=== PATIENT | female | born 1990 | race Caucasian/White ===

== ENCOUNTER 2025-05-16 02:32 | Emergency (ER) | payer OTHER, SELFPAY ==
[2025-05-16] VITALS (22 sets, daily range): BP systolic 141–200; BP diastolic 95–121; PULSE 80–141; RESP 14–16; TEMP 36.6–37.1; O2SAT 97–100
--- NOTE | 2025-05-16 03:09 | PC.NURSE ---
Patient being monitored by this BUSINESS ASST. Items have been removed from the room and cabinets have been secured. Will continue to monitor.
--- NOTE | 2025-05-16 03:34 | PC.NURSE ---
Patient's significant other is in the room. Patietn talking to self and states i am scared repeatedly. Significant other is calming her down. Will continue to monitor.
--- NOTE | 2025-05-16 03:44 | PC.NURSE ---
Talked to pt's fiance. He reports pt has hx of schizoeffective disorder, schizophrenia, and multiple mood disorders. States Pt has been hospitalized multiple times for psychotic episodes. state pt has slept in apx 4 days. Reports she has not been taking her psychiatric medications. He reports pt has had audiotory and visual hallicinations. he also reports pt has been making statements of performing acts that could potential harm other individuals. He is requesting DCR evaluation.
--- NOTE | 2025-05-16 04:08 | ED.PSYCH ---
HPI - Psych <Cornelio Quinn MD - Last Filed: 05/24/25 20:54> General Chief Complaint: Psychiatric Symptoms Stated Complaint: mental health Time Seen by Provider: 05/16/25 02:54 Source: EMS and police Mode of arrival: EMS History of Present Illness HPI Narrative: 35-year-old female with longstanding psychiatric issues is brought in by the police for trying to damage her own property and acting violently. Patient is not a harm to herself but is a harm to others throwing various items such as flower pots and other heavy items towards the paramedics and police. According to her fiance, she has an acute psychotic breakdown roughly once every month or 2. He is not aware of her actual psychiatric diagnoses or her medications as she does not share it with him. He does say that she often prior to these acute psychotic breakdown, she has episodes of insomnia and often talks to people who are not there. She exhibits behaviors of schizophrenia and manic episodes. Initially, when patient came into the ER she was still agitated after being given 300 mg of ketamine by the paramedics. After some coaxing by her fiance and with the assistance of nursing staff, Haldol 5 mg and Benadryl 25 mg IV were given to her and she is now finally sleeping. According to her fiance, at 1 point she was on Abilify and gabapentin but has not been on medications for a long time. Related Data Allergies Allergy/AdvReac Type Severity Reaction Status Date / Time No Known Drug Allergies Allergy Verified 05/16/25 03:14 Review of Systems <Cornelio Quinn MD - Last Filed: 05/24/25 20:54> Review of Systems ROS Unobtainable: All systems reviewed & are unremarkable except as noted in HPI and below Exam <Cornelio Quinn MD - Last Filed: 05/24/25 20:54> Narrative Exam Narrative: General: Patient is randomly screaming and not wanting to be touched. Head: normocephalic, atraumatic, Initial Vital Signs Initial Vital Signs: Vital Signs Pulse Rate 95 H 05/16/25 02:43 Pulse Oximetry 99 05/16/25 02:43 <Albina Roche MD - Last Filed: 05/16/25 17:38> Initial Vital Signs Initial Vital Signs: Vital Signs Pulse Rate 95 H 05/16/25 02:43 Pulse Oximetry 99 05/16/25 02:43 Course <Cornelio Quinn MD - Last Filed: 05/24/25 20:54> Orders Ordered: Discontinued Medications Diphenhydramine HCl (Diphenhydramine 50 Mg/Ml Vial) 25 mg IV NOW ONE Stop: 05/16/25 03:18 Last Admin: 05/16/25 04:09 Dose: 25 mg Documented By: NELA Diphenhydramine HCl (Diphenhydramine 50 Mg/Ml Vial) 25 mg IM NOW ONE Stop: 05/16/25 12:44 Last Admin: 05/16/25 13:13 Dose: 25 mg Documented By: HERMAN Haloperidol (Haloperidol 5 Mg/Ml Vial) 5 mg IV NOW ONE Stop: 05/16/25 03:14 Last Admin: 05/16/25 04:09 Dose: 5 mg Documented By: NELA Haloperidol (Haloperidol 5 Mg/Ml Vial) 10 mg IM NOW ONE Stop: 05/16/25 12:44 Last Admin: 05/16/25 13:13 Dose: 10 mg Documented By: HERMAN Olanzapine (Olanzapine 10 Mg Vial) 10 mg IM NOW ONE Stop: 05/16/25 13:05 Reevaluation(s) Reevaluation #1: Upon re-evaluation, patient is sleeping soundly after 5 mg of Haldol and 25 mg of Benadryl were given. Vital Signs Vital signs: Vital Signs - 8 hr 05/16/25 10:30 05/16/25 11:00 05/16/25 11:30 Temperature Pulse Rate 111 H 121 H 130 H Respiratory Rate Blood Pressure Pulse Oximetry 100 98 97 Oxygen Delivery Method 05/16/25 11:32 05/16/25 11:34 05/16/25 15:08 Temperature 98.7 F Pulse Rate 141 H 125 H Respiratory Rate 16 Blood Pressure 141/103 H 168/104 H Pulse Oximetry 97 99 Oxygen Delivery Method Room Air <Albina Roche MD - Last Filed: 05/16/25 17:38> Orders Ordered: Discontinued Medications Diphenhydramine HCl (Diphenhydramine 50 Mg/Ml Vial) 25 mg IV NOW ONE Stop: 05/16/25 03:18 Last Admin: 05/16/25 04:09 Dose: 25 mg Documented By: NELA Diphenhydramine HCl (Diphenhydramine 50 Mg/Ml Vial) 25 mg IM NOW ONE Stop: 05/16/25 12:44 Last Admin: 05/16/25 13:13 Dose: 25 mg Documented By: HREMAN Haloperidol (Haloperidol 5 Mg/Ml Vial) 5 mg IV NOW ONE Stop: 05/16/25 03:14 Last Admin: 05/16/25 04:09 Dose: 5 mg Documented By: NELA Haloperidol (Haloperidol 5 Mg/Ml Vial) 10 mg IM NOW ONE Stop: 05/16/25 12:44 Last Admin: 05/16/25 13:13 Dose: 10 mg Documented By: HERMAN Olanzapine (Olanzapine 10 Mg Vial) 10 mg IM NOW ONE Stop: 05/16/25 13:05 Vital Signs Vital signs: Vital Signs - 8 hr 05/16/25 10:30 05/16/25 11:00 05/16/25 11:30 Temperature Pulse Rate 111 H 121 H 130 H Respiratory Rate Blood Pressure Pulse Oximetry 100 98 97 Oxygen Delivery Method 05/16/25 11:32 05/16/25 11:34 05/16/25 15:08 Temperature 98.7 F Pulse Rate 141 H 125 H Respiratory Rate 16 Blood Pressure 141/103 H 168/104 H Pulse Oximetry 97 99 Oxygen Delivery Method Room Air MDM - Psych <Cornelio Quinn MD - Last Filed: 05/24/25 20:54> Lab Data 05/16/25 03:00 05/16/25 03:00 Labs: Lab Results 05/16/25 05/16/25 05/16/25 Range/Units 03:00 04:15 07:44 WBC 9.8 (4.5-11.0) X10^3/uL RBC 4.69 (4.0-5.2) X10^6/uL Hgb 13.2 (12.0-16.0) g/dL Hct 38.9 (36-46) % MCV 83.0 (80-100) fL MCH 28.1 (26-34) PG MCHC 33.8 (30-36) % RDW 12.8 (11.6-14.8) % Plt Count 287 (150-400) X10^3/uL Neut % (Auto) 77.9 H (50-75) % Lymph % (Auto) 12.9 L (25-40) % [place] % (Auto) 6.5 (3-14) % Eos % (Auto) 2.4 (2-4) % Baso % (Auto) 0.3 (0-2) % Neut # (Auto) 7700 H (7713-2990) /uL Lymph # (Auto) 1300 (3926-0618) /uL [place] # (Auto) 600 (0-900) /uL Eos # (Auto) 200 (0-450) /uL Baso # (Auto) 0 (0-100) /uL Sodium 137 (137-145) mmol/L Potassium 3.6 (3.4-5.1) mmol/L Chloride 108 H (98-107) mmol/L Carbon Dioxide 22 (22-32) mmol/L BUN 15 (7-17) mg/dL Creatinine 0.81 (0.52-1.04) mg/dL Estimated GFR > 60 (>60) mL/min BUN/Creatinine Ratio 18.5 (6-22) Glucose 113 H (70-99) mg/dL Calcium 8.7 (8.4-10.2) mg/dL Total Bilirubin 0.7 (0.2-1.3) mg/dL AST 37 H (14-36) IU/L ALT 18 (<35) IU/L Alkaline Phosphatase 40 (38-126) U/L Total Protein 7.1 (6.3-8.2) g/dL Albumin 4.4 (3.5-5.0) g/dL Globulin 2.7 (1.7-4.1) g/dL Albumin/Globulin Ratio 1.6 (1.0-2.8) TSH 1.01 (0.47-4.68) uIU/mL Serum , Qual Negative (Negative) Urine Color Yellow Urine Appearance Clear Urine pH 6.0 (4.5-8.0) Ur Specific [place] 1.020 (1.000-1.035) Urine Protein Negative (Negative) Urine Glucose (UA) Negative (Negative) g/dL Urine Ketones 3+ H (NEGATIVE) Urine Occult Blood Negative (Negative) Urine Nitrate Negative (Negative) Urine Bilirubin Negative (NEGATIVE) Urine Urobilinogen 0.2 (0.2) E.U./dL Ur Leukocyte Esterase Negative (NEGATIVE) Urine RBC 0-1/hpf (0-5/HPF) Urine WBC 0-1/hpf (0-5/HPF) Ur Squamous Epith Cells 0-1 /hpf (0-5/HPF) Urine Bacteria Occasional (0-1) (None) Ur Culture Indicated? Cult not indicated Vol Urine Centrifuged Low vol <10ml (spun) A Salicylates < 1.0 (<20) mg/dL U Opiates 300ng/mL cut Negative (Negative) Ur Oxycodone Screen Negative (Negative) Urine Methadone Screen Negative (Negative) Acetaminophen < 10 (10-30) ug/mL Ur Barbiturates Screen Negative (Negative) U Tricyclic Antidepress Negative (Negative) Ur Phencyclidine Scrn Negative (Negative) Ur Amphetamines Screen Negative (Negative) U Methamphetamines Scrn Negative (Negative) Ur MDMA Scrn (Ecstasy) Negative (Negative) U Benzodiazepines Scrn Negative (Negative) Urine Cocaine Screen Negative (Negative) U Marijuana (THC) Screen Negative (Negative) Urine Specific [place] (Normal) Ethyl Alcohol < 10 (<10) mg/dL Ur Creatinine (Normal) SARS-CoV-2 (PCR) Negative (Negative) 05/16/25 Range/Units 07:44 WBC (4.5-11.0) X10^3/uL RBC (4.0-5.2) X10^6/uL Hgb (12.0-16.0) g/dL Hct (36-46) % MCV (80-100) fL MCH (26-34) PG MCHC (30-36) % RDW (11.6-14.8) % Plt Count (150-400) X10^3/uL Neut % (Auto) (50-75) % Lymph % (Auto) (25-40) % [place] % (Auto) (3-14) % Eos % (Auto) (2-4) % Baso % (Auto) (0-2) % Neut # (Auto) (8637-8394) /uL Lymph # (Auto) (6001-9046) /uL [place] # (Auto) (0-900) /uL Eos # (Auto) (0-450) /uL Baso # (Auto) (0-100) /uL Sodium (137-145) mmol/L Potassium (3.4-5.1) mmol/L Chloride (98-107) mmol/L Carbon Dioxide (22-32) mmol/L BUN (7-17) mg/dL Creatinine (0.52-1.04) mg/dL Estimated GFR (>60) mL/min BUN/Creatinine Ratio (6-22) Glucose (70-99) mg/dL Calcium (8.4-10.2) mg/dL Total Bilirubin (0.2-1.3) mg/dL AST (14-36) IU/L ALT (<35) IU/L Alkaline Phosphatase (38-126) U/L Total Protein (6.3-8.2) g/dL Albumin (3.5-5.0) g/dL Globulin (1.7-4.1) g/dL Albumin/Globulin Ratio (1.0-2.8) TSH (0.47-4.68) uIU/mL Serum , Qual (Negative) Urine Color Urine Appearance Urine pH Normal (4.5-8.0) Ur Specific [place] (1.000-1.035) Urine Protein (Negative) Urine Glucose (UA) (Negative) g/dL Urine Ketones (NEGATIVE) Urine Occult Blood (Negative) Urine Nitrate (Negative) Urine Bilirubin (NEGATIVE) Urine Urobilinogen (0.2) E.U./dL Ur Leukocyte Esterase (NEGATIVE) Urine RBC (0-5/HPF) Urine WBC (0-5/HPF) Ur Squamous Epith Cells (0-5/HPF) Urine Bacteria (None) Ur Culture Indicated? Vol Urine Centrifuged Salicylates (<20) mg/dL U Opiates 300ng/mL cut (Negative) Ur Oxycodone Screen (Negative) Urine Methadone Screen (Negative) Acetaminophen (10-30) ug/mL Ur Barbiturates Screen (Negative) U Tricyclic Antidepress (Negative) Ur Phencyclidine Scrn (Negative) Ur Amphetamines Screen (Negative) U Methamphetamines Scrn (Negative) Ur MDMA Scrn (Ecstasy) (Negative) U Benzodiazepines Scrn (Negative) Urine Cocaine Screen (Negative) U Marijuana (THC) Screen (Negative) Urine Specific [place] Normal (Normal) Ethyl Alcohol (<10) mg/dL Ur Creatinine Normal (Normal) SARS-CoV-2 (PCR) (Negative) MDM Narrative Medical decision making narrative: 35-year-old female with longstanding psychiatric issues having an acute psychotic episode tonight where she was a potential harm to others. Patient has not been on her psychiatric medications for a prolonged period of time. Patient needed a dose of Haldol and Benadryl for a light sedation. Patient has been resting comfortably for the majority of the night. Labs have been done. Awaiting DCS evaluation in the a.m.. Patient is signed out to next ER physician Dr. roche <Albina Roche MD - Last Filed: 05/16/25 17:38> Lab Data Labs: Lab Results 05/16/25 05/16/25 05/16/25 Range/Units 03:00 04:15 07:44 WBC 9.8 (4.5-11.0) X10^3/uL RBC 4.69 (4.0-5.2) X10^6/uL Hgb 13.2 (12.0-16.0) g/dL Hct 38.9 (36-46) % MCV 83.0 (80-100) fL MCH 28.1 (26-34) PG MCHC 33.8 (30-36) % RDW 12.8 (11.6-14.8) % Plt Count 287 (150-400) X10^3/uL Neut % (Auto) 77.9 H (50-75) % Lymph % (Auto) 12.9 L (25-40) % [place] % (Auto) 6.5 (3-14) % Eos % (Auto) 2.4 (2-4) % Baso % (Auto) 0.3 (0-2) % Neut # (Auto) 7700 H (1841-5744) /uL Lymph # (Auto) 1300 (0799-5054) /uL [place] # (Auto) 600 (0-900) /uL Eos # (Auto) 200 (0-450) /uL Baso # (Auto) 0 (0-100) /uL Sodium 137 (137-145) mmol/L Potassium 3.6 (3.4-5.1) mmol/L Chloride 108 H (98-107) mmol/L Carbon Dioxide 22 (22-32) mmol/L BUN 15 (7-17) mg/dL Creatinine 0.81 (0.52-1.04) mg/dL Estimated GFR > 60 (>60) mL/min BUN/Creatinine Ratio 18.5 (6-22) Glucose 113 H (70-99) mg/dL Calcium 8.7 (8.4-10.2) mg/dL Total Bilirubin 0.7 (0.2-1.3) mg/dL AST 37 H (14-36) IU/L ALT 18 (<35) IU/L Alkaline Phosphatase 40 (38-126) U/L Total Protein 7.1 (6.3-8.2) g/dL Albumin 4.4 (3.5-5.0) g/dL Globulin 2.7 (1.7-4.1) g/dL Albumin/Globulin Ratio 1.6 (1.0-2.8) TSH 1.01 (0.47-4.68) uIU/mL Serum , Qual Negative (Negative) Urine Color Yellow Urine Appearance Clear Urine pH 6.0 (4.5-8.0) Ur Specific [place] 1.020 (1.000-1.035) Urine Protein Negative (Negative) Urine Glucose (UA) Negative (Negative) g/dL Urine Ketones 3+ H (NEGATIVE) Urine Occult Blood Negative (Negative) Urine Nitrate Negative (Negative) Urine Bilirubin Negative (NEGATIVE) Urine Urobilinogen 0.2 (0.2) E.U./dL Ur Leukocyte Esterase Negative (NEGATIVE) Urine RBC 0-1/hpf (0-5/HPF) Urine WBC 0-1/hpf (0-5/HPF) Ur Squamous Epith Cells 0-1 /hpf (0-5/HPF) Urine Bacteria Occasional (0-1) (None) Ur Culture Indicated? Cult not indicated Vol Urine Centrifuged Low vol <10ml (spun) A Salicylates < 1.0 (<20) mg/dL U Opiates 300ng/mL cut Negative (Negative) Ur Oxycodone Screen Negative (Negative) Urine Methadone Screen Negative (Negative) Acetaminophen < 10 (10-30) ug/mL Ur Barbiturates Screen Negative (Negative) U Tricyclic Antidepress Negative (Negative) Ur Phencyclidine Scrn Negative (Negative) Ur Amphetamines Screen Negative (Negative) U Methamphetamines Scrn Negative (Negative) Ur MDMA Scrn (Ecstasy) Negative (Negative) U Benzodiazepines Scrn Negative (Negative) Urine Cocaine Screen Negative (Negative) U Marijuana (THC) Screen Negative (Negative) Urine Specific [place] (Normal) Ethyl Alcohol < 10 (<10) mg/dL Ur Creatinine (Normal) SARS-CoV-2 (PCR) Negative (Negative) 05/16/25 Range/Units 07:44 WBC (4.5-11.0) X10^3/uL RBC (4.0-5.2) X10^6/uL Hgb (12.0-16.0) g/dL Hct (36-46) % MCV (80-100) fL MCH (26-34) PG MCHC (30-36) % RDW (11.6-14.8) % Plt Count (150-400) X10^3/uL Neut % (Auto) (50-75) % Lymph % (Auto) (25-40) % [place] % (Auto) (3-14) % Eos % (Auto) (2-4) % Baso % (Auto) (0-2) % Neut # (Auto) (0744-4429) /uL Lymph # (Auto) (1312-5961) /uL [place] # (Auto) (0-900) /uL Eos # (Auto) (0-450) /uL Baso # (Auto) (0-100) /uL Sodium (137-145) mmol/L Potassium (3.4-5.1) mmol/L Chloride (98-107) mmol/L Carbon Dioxide (22-32) mmol/L BUN (7-17) mg/dL Creatinine (0.52-1.04) mg/dL Estimated GFR (>60) mL/min BUN/Creatinine Ratio (6-22) Glucose (70-99) mg/dL Calcium (8.4-10.2) mg/dL Total Bilirubin (0.2-1.3) mg/dL AST (14-36) IU/L ALT (<35) IU/L Alkaline Phosphatase (38-126) U/L Total Protein (6.3-8.2) g/dL Albumin (3.5-5.0) g/dL Globulin (1.7-4.1) g/dL Albumin/Globulin Ratio (1.0-2.8) TSH (0.47-4.68) uIU/mL Serum , Qual (Negative) Urine Color Urine Appearance Urine pH Normal (4.5-8.0) Ur Specific [place] (1.000-1.035) Urine Protein (Negative) Urine Glucose (UA) (Negative) g/dL Urine Ketones (NEGATIVE) Urine Occult Blood (Negative) Urine Nitrate (Negative) Urine Bilirubin (NEGATIVE) Urine Urobilinogen (0.2) E.U./dL Ur Leukocyte Esterase (NEGATIVE) Urine RBC (0-5/HPF) Urine WBC (0-5/HPF) Ur Squamous Epith Cells (0-5/HPF) Urine Bacteria (None) Ur Culture Indicated? Vol Urine Centrifuged Salicylates (<20) mg/dL U Opiates 300ng/mL cut (Negative) Ur Oxycodone Screen (Negative) Urine Methadone Screen (Negative) Acetaminophen (10-30) ug/mL Ur Barbiturates Screen (Negative) U Tricyclic Antidepress (Negative) Ur Phencyclidine Scrn (Negative) Ur Amphetamines Screen (Negative) U Methamphetamines Scrn (Negative) Ur MDMA Scrn (Ecstasy) (Negative) U Benzodiazepines Scrn (Negative) Urine Cocaine Screen (Negative) U Marijuana (THC) Screen (Negative) Urine Specific [place] Normal (Normal) Ethyl Alcohol (<10) mg/dL Ur Creatinine Normal (Normal) SARS-CoV-2 (PCR) (Negative) MDM Narrative Medical decision making narrative: 35-year-old female with longstanding psychiatric issues having an acute psychotic episode tonight where she was a potential harm to others. Patient has not been on her psychiatric medications for a prolonged period of time. Patient needed a dose of Haldol and Benadryl for a light sedation. Patient has been resting comfortably for the majority of the night. Labs have been done. Awaiting DCS evaluation in the a.m.. Patient is signed out to next ER physician Dr. roche This patient is currently waiting for [facility] to arrive 10 am and evaluate for psych placement and find inpatient psych facility for acute psychosis. Actually both DCR and regulatory services consultant came to evaluate the patient and DCR feels the patient needs to be committed to a psych facility. Asked that patient be chemically restrained again as acting out when was going to be moved to a more secure room and resisted initially. Patient given another dose of Haldol 10 mg IM and Benadryl 25 mg IM. also necessitated zyprexa 10 mg IM before adequately sedated. DCR arranged transfer to [facility]. Diagnosis: Acute psychosis. Discharge Plan Departure Patient Disposition: Xfer Psychiatric Hosp Clinical Impression: Acute psychosis
[2025-05-16] MEDS: diphenhydrAMINE 50 MG/ML VIAL 25 MG IV (04:09)
[2025-05-16] MEDS: HALOPERIDOL 5 MG/ML VIAL IV (04:09)
[2025-05-16 04:15] LABS: Add Manual Diff / Slide Review NO; Hematocrit 38.9 % (36-46); Hemoglobin 13.2 g/dL (12.0-16.0); Lymphocytes Absolute Auto 1300 /uL (1100-4500); Mean Corpuscular HGB Conc 33.8 % (30-36); Mean Corpuscular Hemoglobin 28.1 PG (26-34); Mean Corpuscular Volume 83.0 fL (80-100); Platelet Count 287 X10^3/uL (150-400)
--- NOTE | 2025-05-16 04:18 | PC.NURSE ---
Patient's significant other (Sandeep) had to leave. Left numbers for the following contacts: Sandeep's work phone Sandeep's personal number Mom's number [Patti]
[2025-05-16 04:29] LABS: Pregnancy Test Serum,Qual Negative (Negative)
[2025-05-16 04:35] LABS: Acetaminophen < 10 ug/mL (10-30); Alanine Aminotransferase 18 IU/L (<35); Albumin 4.4 g/dL (3.5-5.0); Albumin Globulin Ratio 1.6 (1.0-2.8); Alkaline Phosphatase 40 U/L (38-126); Blood Urea Nitrogen 15 mg/dL (7-17); Calcium 8.7 mg/dL (8.4-10.2); Carbon Dioxide 22 mmol/L (22-32); Chloride 108 mmol/L (98-107); Estimated Glomerular Filt Rate > 60 mL/min (>60); Ethanol (ETOH) < 10 mg/dL (<10); Globulin 2.7 g/dL (1.7-4.1); Glucose 113 mg/dL (70-99); HEMOLYSIS < 15 (0-50); Potassium 3.6 mmol/L (3.4-5.1); Salicylate < 1.0 mg/dL (<20); Sodium 137 mmol/L (137-145); Total Protein 7.1 g/dL (6.3-8.2)
[2025-05-16 05:10] LABS: COVID19 -Nasal RAPID Negative (Negative)
[2025-05-16 05:11] LABS: TSH w/ Reflex to FT4 1.01 uIU/mL (0.47-4.68)
--- NOTE | 2025-05-16 07:07 | PC.NURSE ---
Attempted to obtain pt's bp. Pt immediately removed removed cuff and started to get combative. Once stopped pt calmed down. Was not able to get blood at this time.
--- NOTE | 2025-05-16 07:56 | EKG_ITS ---
[facility] [address], [place] [address] Test Date: 2025-05-16 Pat Name: Ita Rand Department: [facility] Room: Gender: Female It Senior Analyst: : 1990 Requested By: Order Number: [id number] Reading MD: Ej Westbrook MD Measurements Intervals [place] Rate: 126 P: 82 RI: 144 QRS: 55 QRSD: 82 T: 44 QT: 316 QTc: 457 Interpretive Statements Sinus tachycardia Electronically Signed On 05-25-2025 9:01:12 PST by Ej Westbrook MD
[2025-05-16 08:04] LABS: Appearance Urine UA CLEAR; Bilirubin Urine UA NEGATIVE (NEGATIVE); Color Urine UA YELLOW; Glucose Urine UA NEGATIVE (Negative); Ketones Urine UA 3+ (NEGATIVE); Leukocyte Esterase Urine UA NEGATIVE (NEGATIVE); Nitrite Urine UA NEGATIVE (Negative); Occult Blood Urine UA NEGATIVE (Negative); Protein Urine UA NEGATIVE (Negative); Specific Gravity Urine UA 1.020 (1.000-1.035); Urobilinogen Urine UA 0.2 E.U./dL (0.2)
[2025-05-16 08:06] LABS: pH Urine UA 6.0 (4.5-8.0)
[2025-05-16 08:07] LABS: Ur Creatinine Normal (Normal); Ur Specific Gravity Normal (Normal); Urine Methamphetamines Negative (Negative); Urine THC Negative (Negative); Urine pH Normal (Normal)
[2025-05-16 08:08] LABS: Urine MDMA Negative (Negative); Urine Tricyclic Antidepressant Negative (Negative)
[2025-05-16 08:10] LABS: Culture Indicated Urine Cult Not Indicated
--- NOTE | 2025-05-16 09:10 | PC.NURSE ---
DCR dispatched @1260 per request.
--- NOTE | 2025-05-16 12:35 | PC.NURSE ---
patient is walking around the room sayhing Its time to go, lets let the kids go,stomping on a milk box carten, walking with a pillowcase stuffed with sheets and lunch provided.
--- NOTE | 2025-05-16 12:43 | PC.NURSE ---
patient is sitting in bed crying with blankets wrapped around her feet and a pillow case in her lap full of sheets. The patients Shagufta and EFREN thompson entered the room together at this time.
[2025-05-16] MEDS: HALOPERIDOL 5 MG/ML VIAL 10 MG IM (13:13)
[2025-05-16] MEDS: diphenhydrAMINE 50 MG/ML VIAL 25 MG IM (13:13)
--- NOTE | 2025-05-16 13:30 | PC.NURSE ---
fiance continues to be at patients bedside, patient is calm laying down in bed holding her fiances hand at this time.
--- NOTE | 2025-05-16 13:42 | PC.NURSE ---
RN note on pt activity from [id number]: When this creative writer's shift started, pt was resting comfortably in bed. Shortly after this pt requested to go to the restroom and this RN assisted her with walking there and obtaining a urine sample. While walking with this RN pt appeared suspicious, looking at her surroundings with narrowed eyes. When in the restroom pt started moving the shower curtain and looking behind it stating I'm just checking. When pt was finished using the restroom she washed her hands repeatedly, told this RN I'm a bit of a germaphobe and then looking down the back hallway of the unit (towards staff break room and offices, no pt rooms) and stated Sorry just making sure that my door is closed. Pt was brought shown back to her room and an O2 sticker was replaced on her big toe to check HR and O2. Pt slep on and off in room after this for a couple hours. After getting up pt asked to try to call her mom and daquan and was assisted with this. Pt was able to talk with sade but did not get through to her mom until later in the day. When pt talked with this creative writer she made odd statements without context such as He needs to talk to his father. He doesn't understand why but he needs to. It will be better that way and talked about needing to make sure my dog is breathing, she is so small. Pt asked about going home but was initially easily redirected. Pt began to escalate later in the day when staff needed to move her to another room to make further space on the unit. Pt appeared flustered, moving her hands erratically and moving about her room very quickly while making poor eye contact with staff. While moving to the other room pt appeared to be rushing towards the exit and staff stepped in to redirect her. At this time pt started demanding to leave and repeatedly told staff Do not touch me with increasing intensity, though no one was touching her. DCR had arrived at this time for assessment and pt was informed that she could not leave at this time unitl speaking to DCR. Pt initially refused to enter the new room and instead seated herself on the floor in the hallway in front of the door to the dirty utility room. Security was called for stand by and multiple staff were present as show of support. Both DCR and floor staff attempted to explain the situation to pt but she demanded to speak with a order tracer before speaking to DCR. Pt made vague statements such as for everyone's safety I need to leave and I have to know the children are ok without explanation. Pt also made vague statements implying that people, particularly her mother, had personal issues that were causing these people to be overly concerned for her safety. Pt eventually walked into the room but continued to refuse to speak to the DCR for some time. Pt's princeace arrived during DCR visit which helped with pt's agreeing to stay while he was present. After speaking with the pt, DCR issued detainment paperwork on grounds of GD and DTO. When this was explained to pt she became increasingly dysregulated, crying and yelling despite her fiance's presence. Pt was given IM Haldol and Benadryl at this time to emergently calm her and help her maintain safe behavior. Pt repeatedly told this RN I don't understand what's happening, I don't understand what's happening! but when this creative writer attempted to explain it to her she continued to yell over staff. Staff explain behavioral expectations to pt at this time regarding her safety and the safety of others. This RN also reiterated to pt that she is not legally able to leave at this time and that staff would be legally obligated to stop her if she attempted to do so. Pt acknowledged this teaching and agreed to maintain safe behavior without further intervention at this time. Pt eventually was able to fall asleep and sade remains at bedside for support.
--- NOTE | 2025-05-16 14:24 | CM.SWNOTE ---
ED VEGETABLE CANNER Note Patient is 35 y/o female who presents to ED via BLS and LE due to concern for manic episode. It is reported that patient has not slept for 4 days and has been experiencing increasing internal stimuli and hallucinations, patient presents with paranoia. DCR is dispatched prior to ED VEGETABLE CANNER's arrival. It is determined that patient is going to be detained by DCR. Patient is accepted at [facility] as [place] by Dr. Strauss, intake is T[facility]. RN-RN is [phone]. DCR to serve patient [place] legal documents. It is reported that patient can arrive at [facility] before 1700 or after 2000. VEGETABLE [facility]NER calls [facility] and [facility] can arrive sooner, [facility] to arrive at 1500. [facility] notified. Patient to transfer to [facility] via BLS this afternoon for [place] [facility] placement. Barbara Nguyen, DRIVER UTILITY WORKER
== END 2025-05-16 15:00 ==
PROVIDERS: Family Medicine; Emergency Provider Emergency Medicine
DX: F23 Brief psychotic disorder (principal)
CPT/HCPCS: 80053; 80305; 80320; 80329; 81001; 84443; 84703; 85025; 87635; 93005; 93010; 96372; 96374; 96375; 99284; G0480; J1200; J1630